=== PATIENT | male | born 1980 | race Caucasian/White ===

== ENCOUNTER 2022-05-10 07:04 | Day surgery (SDC) | payer OTHER ==
[2022-05-10] VITALS (172 sets, daily range): BP systolic 89–132; BP diastolic 49–100
--- NOTE | 2022-05-10 07:15 | NUR ---
ARRIVES TO FLOOR AMBULATORY WITH . ORIENTED TO ROOM AND PROCEDURE, CONSENTS SIGNED. ALL BELONGINGS SENT HOME WITH . CLOTHING ONLY RETAINED. PT PLEASANT AND COOPERATIVE.
[2022-05-10 07:43] LABS: HEMATOCRIT 43.8 % (39.0-50.0); HEMOGLOBIN 14.4 g/dl (14.0-18.0); MEAN CELL VOLUME 90.9 fL CALC (80.0-100.0); MEAN CORPUSCULAR HGB 29.9 pG CALC (26.0-32.0); MEAN CORPUSCULAR HGB CONC 32.9 g/dL CAL (32.0-36.0); NEUT# 3.2 thou/uL (1.82-7.42); RED BLOOD COUNT 4.82 mill/uL (4.70-6.10); RED CELL DISTRI WIDTH 12.5 % (11.5-15.5)
[2022-05-10 08:02] LABS: ALBUMIN 4.3 g/dL (3.2-5.0); ALKALINE PHOSPHATASE 76 u/l (38-126); ANION GAP 11 (6-22 (CALC)); BILIRUBIN, TOTAL 0.5 mg/dL (0.0-1.4); BUN 12 mg/dL (9-20); BUN/CREATININE RATIO 15 (12-20 (CALC)); CARBON DIOXIDE 29 mmol/l (22-30); CHLORIDE 101 mmol/l (95-108); CREATININE 0.8 mg/dL (0.7-1.3); GFR FOR AFR.AMER. > 60 ML/MIN (>=60 (CALC)); GFR OTHER RACES > 60 ML/MIN (>=60 (CALC)); POTASSIUM 4.4 mmol/l (3.5-5.1); SGOT/AST 31 u/l (17-59); SODIUM 137 mmol/l (137-146); TOTAL PROTEIN 7.4 g/dL (6.3-8.2)
--- NOTE | 2022-05-10 10:30 | NUR ---
PT REASSESSED, TOLERATING IV FLUIDS WELL. MEDICATED ORDERED.PT DENIES NEEDS
--- NOTE | 2022-05-10 12:00 | NUR ---
Induction Note Patient to [facility] procedure room. Time out performed at 1202. Patient placed on monitors, Kelsy hugger, bilateral wrist restraints applied for ET tube protection. Versed 5mg given IV push at 1203 Tourniquet applied to RIGHT arm Lidocaine 100mg given at 1204 IV push followed by Rocoronium 10mg at 1204 IV push and held for 90 seconds. Propofol bolus of 120mg given at 1205 IV push. Succinylcholine 80mg given IV push at 1206. Smooth intubation with 7.5 ETT. Positive CO2. Positive Auscultation for air exchange. Patient placed on ventilator for spontaneous ventilation. Placed on Propofol IV drip at 1208. OG inserted. Positive air on auscultation. Positive gastric content. Stomach washed at this time.
--- NOTE | 2022-05-10 12:20 | NUR ---
OG close note Stomach washed at this time. Naltrexone 75 mg with Clonidine 0.1 mg via OG tube. OG will be clamped for 45 minutes.
--- NOTE | 2022-05-10 12:45 | NUR ---
PT CLEANSED OF LARGE LIQUID BROWN STOOL. MAINTAINED WITH SPONTANEOUS RESPIRATIONS ON VENT.
--- NOTE | 2022-05-10 13:05 | NUR ---
OG open note OG open at this time. Gastric content draining into drainage bag. OG to drain for 45 minutes. Propofol will be titrated down based on patient.
--- NOTE | 2022-05-10 13:50 | NUR ---
OG close note Stomach washed at this time. Naltrexone 50 mg with Clonidine 0.2 mg via OG tube. OG will be clamped for 45 minutes.
--- NOTE | 2022-05-10 15:20 | NUR ---
OG close note Stomach washed at this time. Naltrexone 12.5 mg with Clonidine 0.1 mg via OG tube. OG will be clamped for 45 minutes.
--- NOTE | 2022-05-10 17:23 | NUR ---
Extubation note Closing medications given Benadryl 50mg IV push, Decadron 10mg IV push,Magnesium 4 grams IV, Zofran 8mg IV push, Octreotide 100mcg SC. Stomach washed out prior to extubation. Suctioned gastric content. OG removed. Patient extubated. Propofol Discontinued. Wrist restraints removed. Kelsy hugger Removed. See [facility] Moderate sedate recovery record for further notes and assessment.
--- NOTE | 2022-05-10 17:23 | NUR ---
OG REMOVED AND 700 CC GREEN FLUID IN BAG TO BSD. REMOVED FC OF 1200CC BRIGHT YELLOW CLEAR URINE. PT HAD LARGE LIGHT BROWN STOOL WITH TWO SMEARS OF LIGHT RED MUCOUS, NOTED. PT COCCYX PINK, APPLIED BARRIER CREAM.
--- NOTE | 2022-05-10 17:50 | NUR ---
TRANSPORTED TO RI VIA STRETCHER WITH SPONTANEOUS REGULAR RESPIRATIONS. ROUSES TO VERBAL STIMULI, MOVES ARMS AND LEGS WELL. BEDSIDE REPORT TO PANCHO JEROME.
[2022-05-10] MEDS ORDERED: NALTREXONE50 MG PO (18:21)
[2022-05-10] MEDS ORDERED: CLONIDINE0.1 MG PO (18:21)
[2022-05-10] MEDS ORDERED: KLONOPIN2 MG PO (18:22)
--- NOTE | 2022-05-10 19:30 | NUR ---
PATIENT RESTING IN BED. ALERT. ABLE TO MAKE NEEDS KNOWN. VERBALIZES WHEN HE NEEDS TO USE THE BATHROOM. USES URINAL OR AMBULATES TO THE BATHROOM. STEADY ON FEET WITH PERIODS OF STUMBLING. NEEDS SURPERVISION. BED IN LOW POSITION. CALL LIGHT IN REACH. BED ALARM ACTIVE.
--- NOTE | 2022-05-11 00:06 | NUR ---
PATIENT RESTING IN BED. GETS UP AND AMUBLATES IN THE BATHROOM WHEN NEEDED. STEADY ON FEET. ATE SOME FOOD EARLIER AND TOLERATED IT. DRINKING WELL. BED IN LOW POSITION. CALL MEDLEY IN REACH. BED ALARM DOES REMAIN ACTIVE.
[2022-05-11 04:07] VITALS: BP 111/63
--- NOTE | 2022-05-11 04:38 | NUR ---
PATIENT RESTING IN BED. RECEIVED ALL SCHEDULED MEDS WITHOUT DIFFICULTY. ALERT. ABLE TO MAKE NEEDS KNOWN. BED REMAINS IN LOW POSITION. CALL MEDLEY IN REACH. BED ALARM REMAINS ACTIVE.
[2022-05-11 05:15] LABS: HEMATOCRIT 43.9 % (39.0-50.0); IMMATURE GRANULOCYTES 0.1 % (0.0-5.0); MEAN CORPUSCULAR HGB 30.1 pG CALC (26.0-32.0); MEAN CORPUSCULAR HGB CONC 34.2 g/dL CAL (32.0-36.0); NEUT# 10.87 thou/uL (1.82-7.42); RED BLOOD COUNT 4.99 mill/uL (4.70-6.10); RED CELL DISTRI WIDTH 12.2 % (11.5-15.5)
[2022-05-11 05:51] LABS: ALKALINE PHOSPHATASE 70 u/l (38-126); ANION GAP 14 (6-22 (CALC)); BILIRUBIN, TOTAL 0.5 mg/dL (0.0-1.4); BUN 12 mg/dL (9-20); BUN/CREATININE RATIO 15 (12-20 (CALC)); CARBON DIOXIDE 24 mmol/l (22-30); CHLORIDE 104 mmol/l (95-108); CREATININE 0.8 mg/dL (0.7-1.3); GFR FOR AFR.AMER. > 60 ML/MIN (>=60 (CALC)); GFR OTHER RACES > 60 ML/MIN (>=60 (CALC)); MAGNESIUM 2.3 mg/dL (1.6-2.3); SGOT/AST 25 u/l (17-59); SODIUM 138 mmol/l (137-146); TOTAL PROTEIN 6.6 g/dL (6.3-8.2)
--- NOTE | 2022-05-11 07:21 | NUR ---
RECEIVE REPORT FROM IGNACIO JEROME
[2022-05-11 07:48] VITALS: BP 96/57
--- NOTE | 2022-05-11 08:00 | NUR ---
PATIENT ALERT AND ORIENTED X3. PT STABLE AT HIS TIME. GOOD RESPIRATORY RATE. PT RESTING IN BED.
[2022-05-11 12:40] VITALS: BP 101/64
--- NOTE | 2022-05-11 12:43 | NUR ---
PATIENT RESTING IN BED. STABLE AT THIS TIME.
--- NOTE | 2022-05-11 15:03 | NUR ---
PT STABLE IS DISCHARGED.
== END 2022-05-11 15:00 | disposition home or self-care (01) | DRG 897 ==
LOC: MS2 07:04 → ANR 07:04
PROVIDERS: ATTEND Anesthesiology
DX: F11.20 Opioid dependence, uncomplicated (principal)
CPT/HCPCS: J2060